=== PATIENT | male | born 1940 | race Caucasian/White ===

== ENCOUNTER 2017-06-23 12:57 | Outpatient (CLI) | payer MEDICARE, OTHER ==
--- NOTE | 2017-06-23 14:21 | XRAY Report ---
FACIAL BONES: 06/23/2017 CLINICAL INDICATION: Lacerations, broken glasses, question foreign body. FINDINGS: AP, Craft, lateral, and Timothy views of the facial bones are obtained. There is no eviden ce of acute fracture. There is an ovoid radiodensity projecting over the left orbit on the Craft vie w, measuring 8 x 4 mm, suspicious for a foreign body. Consider CT for further evaluation if clinicall y warranted. IMPRESSION: POSSIBLE LEFT ORBIT FOREIGN BODY, MEASURING 8 X 4 MM, BEST SEEN ON THE CRAFT VIEW. CONS IDER CT FOR FURTHER EVALUATION. NO DEFINITE EVIDENCE OF ORBITAL FRACTURE ON PLAIN FILM. JOB #: [id number] EXT JOB #:[id number]
--- NOTE | 2017-06-23 17:47 | CT Preliminary Report ---
Exam: CT Facial Bones W/O IMPRESSION: 1. No evidence of facial bone fracture. 2. Extensive left periorbital soft tissue swelling with several punctate superficial soft tissue fore ign bodies superior and lateral to the left orbit. [facility] SITE ID: [id number]
--- NOTE | 2017-06-23 17:50 | CT Report ---
EXAM: CT MAXILLOFACIAL WITHOUT CONTRAST EXAM DATE: 06/23/2017 05:31 PM. CLINICAL HISTORY: LAC OVER ZYGOMA. COMPARISONS: None. TECHNIQUE: Thin-section axial images were acquired of the face without contrast. Post-processing: Cor onal and sagittal reformats. Other: None. In accordance with CT protocol optimization, one or more of the following dose reduction techniques w ere utilized for this exam: automated exposure control, adjustment of mA and/or KV based on patient s ize, or use of iterative reconstructive technique. FINDINGS: Bones: No fracture or bone lesion. Temporomandibular Joints: The temporomandibular joints are symmetric and normally located. Sinuses: Normal. No mucosal thickening or fluid levels. Other: There is extensive left periorbital soft tissue swelling. Several 1-2 mm superficial soft tiss ue densities most likely representing foreign bodies seen superior and lateral to the orbit. IMPRESSION: 1. No evidence of facial bone fracture. 2. Extensive left periorbital soft tissue swelling with several punctate superficial soft tissue fore ign bodies superior and lateral to the left orbit. [facility] Referring Provider Line: [phone] SITE ID: [id number]
== END 2017-06-23 12:58 | disposition home or self-care (01) ==
LOC: DI 12:57
PROVIDERS: ATTEND Specialist
DX: S01.82XA Laceration with foreign body of other part of head, initial encounter (principal); R22.0 Localized swelling, mass and lump, head
CPT/HCPCS: 70150; 70486

== ENCOUNTER 2017-06-23 18:56 | Outpatient (CLI) | payer MEDICARE, OTHER | END 2017-06-23 18:57 | disposition home or self-care (01) | LOC: DI 18:56 | PROVIDERS: ATTEND Specialist | DX: Z53.9 Procedure and treatment not carried out, unspecified reason (principal) ==

== ENCOUNTER 2017-06-25 09:54 | Emergency (ER) | payer MEDICARE, OTHER ==
[2017-06-25] MEDS ORDERED: oxyCOD/ACETAMIN 5 MG/325 MG TABLET PO STA (10:03)
--- NOTE | 2017-06-25 10:09 | ED Physician Documentation ---
PD HPI UPPER EXT INJURY - Stated complaint Stated Complaint: LEFT WRIST PX/GLF - Chief complaint Chief Complaint: Ext Problem - History obtained from History obtained from: Patient, Family - History of Present Illness Location: Left, Wrist Type of injury: Fall Where injury occurred: Street Timing - onset: How many days ago (2) Timing - duration: Days (2) Timing - details: Abrupt onset Pain level max: 8 Pain level now: 8 Improved by: Rest, Ice, Immobilization Worsened by: Moving, Palpating Associated symptoms: Tingling, Swelling. No: Weakness, Numbness, Discolored Contributing factors: No: Anticoagulated, Prior ortho surgery, Prosthetic joint - Additonal information Additional information: patient states fell 2 days ago onto L wrist. Seen in clinic at that time and had reportedly negative head CT. Laceration repaired. Now has L wrist pain. Pt is right handed. Review of Systems Constitutional: denies: Fever, Chills GI: denies: Nausea, Vomiting, Diarrhea Skin: denies: Rash Musculoskeletal: denies: Neck pain, Back pain Neurologic: denies: Focal weakness, Numbness, Confused, Altered mental status, Headache PD PAST MEDICAL HISTORY - Past Medical History Cardiovascular: Atrial fibrillation Respiratory: COPD, Sleep apnea - Past Surgical History Past Surgical History: Yes Ortho: Knee replacement, Spine surgery - Present Medications Home Medications: Ambulatory Orders Medication Instructions Recorded Confirmed Tamsulosin [Flomax] 0.4 mg PO DAILY 10/02/16 06/25/17 Albuterol Sulfate [Proair Hfa 2 puffs INH Q4H PRN 10/03/16 06/25/17 Inhaler] Fluticasone/Salmeterol [Advair 1 cap INH BID 10/03/16 06/25/17 250-50 Diskus] Omeprazole [PriLOSEC] 20 mg PO DAILY #30 capsule 10/03/16 06/25/17 Gabapentin 300 mg PO TID 06/25/17 06/25/17 Hydrocodone/Acetaminophen 1 - 2 each PO Q6H PRN #14 tablet 06/25/17 [Hydrocodon-Acetaminophen 5-325] - Allergies Allergies/Adverse Reactions: Allergies Allergy/AdvReac Type Severity Reaction Status Date / Time latex Allergy Intermediate Hives Verified 10/02/16 17:27 Beef Containing Products Allergy Hives Verified 10/02/16 17:41 gluten Allergy Cramps Verified 10/02/16 17:41 kiwi Allergy Hives Verified 10/02/16 17:41 peach Allergy Hives Verified 10/02/16 17:41 penicillinase Allergy Rash Verified 10/02/16 13:33 shrimp Allergy Hives Verified 10/02/16 17:41 - Social History Does the pt smoke?: No Smoking Status: Never smoker Does the pt drink ETOH?: No PD ED PE NORMAL - Vitals Vital signs reviewed: Yes - General General: Alert and oriented X 3, No acute distress - HEENT HEENT: Moist mucous membranes - Neck Neck: Supple, no meningeal sign - Derm Derm: Warm and dry - Extremities Extremities: Other (TTP over ulnar aspect of the L wrist. No snuffbox tenderness. NVI. Mild swelling. No hand or finger tenderness. ) - Neuro Neuro: Alert and oriented X 3 - Psych Psych: Normal mood, Normal affect Results - Vitals Vitals: Vital Signs - 24 hr 06/25/17 06/25/17 09:58 11:30 Temperature 36.2 C L Heart Rate 78 64 Respiratory 18 18 Rate Blood Pressure 152/119 H 143/74 H O2 Saturation 95 97 Oxygen O2 Source Room air - Rads (name of study) L wrist xray Radiology: Prelim report reviewed, EMP read contemporaneously, See rad report ( No fracture or acute osseous abnormality. Mild widening of the scapholunate space, consistent with ligamentous disruption, age indeterminate. Soft tissue swelling over the distal ulna. ) PD MEDICAL DECISION MAKING - ED course Complexity details: reviewed results, re-evaluated patient, considered differential, d/w patient, d/w family ED course: Patient is a 77-year-old male who presents to the emergency department with left wrist pain after a fall several days ago. The x-ray does not reveal any acute fractures or osseous abnormalities. There is a mild widening of the scapholunate space, possible ligamentous disruption. Age indeterminant. Also some soft tissue swelling over the distal ulna. Will place the patient in a Velcro thumb spica and have him follow-up with orthopedics for repeat evaluation. Neurovascularly intact. Patient and family counseled regarding signs and symptoms for which I believe and urgent re-evaluation would be necessary. Patient with good understanding of and agreement to plan and is comfortable going home at this time This document was made in part using voice recognition software. While efforts are made to proofread this document, sound alike and grammatical errors may occur. Departure - Departure Disposition: 01 Home, Self Care Clinical Impression: Left wrist sprain Qualifiers: Encounter type: initial encounter Qualified Code(s): S63.502A - Unspecified sprain of left wrist, initial encounter Condition: Good Instructions: ED Sprain Wrist Follow-Up: JABIER MARCUS [Primary Care Provider] - [facility] [Provider Group] - Within 1 week Prescriptions: Hydrocodone/Acetaminophen [Hydrocodon-Acetaminophen 5-325] 1 - 2 each PO Q6H PRN #14 tablet PRN Reason: pain Comments: Return if you worsen. Keep the splint on for at least the next week. There is some widening of a joint in your wrist called the scapholunate joint that may be related to this injury and needs orthopedic follow up. Do not drink alcohol or drive while on narcotic pain medicine. Note that many narcotic pain relievers also contain tylenol/acetaminophen. Please ensure that your total dose of acetaminophen from all sources does not exceed 3 grams (3000mg) per day. You may constipated on this medication, take a stool softener such as "Colace" twice a day while you are on it. Also recommend a pzdn-utb-innslor laxative such as senna or MiraLAX any day that you do not have a bowel movement. If you received narcotic pain medication in the emergency department, do not drive or operate machinery for the next 24 hours. Your blood pressure was elevated today on check in to the emergency department. This does not mean that you have hypertension, it is a common phenomenon to check into the emergency department and have elevated blood pressure. I recommend that you see your primary care physician within the week to have it rechecked when you're feeling better. Discharge Date/Time: 06/25/17 12:10
[2017-06-25] MEDS ORDERED: oxyCOD/ACETAMIN 5 MG/325 MG TABLET PO ONE (10:10)
[2017-06-25] MEDS ORDERED: PROMETHAZINE 25 MG TABLET PO STA (11:29)
[2017-06-25 11:31] VITALS: BP 143/74
[2017-06-25] MEDS ORDERED: PROMETHAZINE 25 MG TABLET ONE (11:34)
--- NOTE | 2017-06-25 11:48 | XRAY Preliminary Report ---
Exam: XR Wrist 4 View LT IMPRESSION: No fracture or acute osseous abnormality. Mild widening of the scapholunate space, consistent with ligamentous disruption, age indeterminate. Soft tissue swelling over the distal ulna. [facility] SITE ID: [id number]
--- NOTE | 2017-06-25 11:50 | XRAY Report ---
EXAM: LEFT WRIST RADIOGRAPHY, 4 VIEWS EXAM DATE: 06/25/2017 11:19 AM. CLINICAL HISTORY: Fall with wrist pain in a 77-year-old male. COMPARISON: None. TECHNIQUE: Frontal, lateral, oblique and carpal navicular views. FINDINGS: Bones: Normal. No fractures or bone lesions. Joints: Mild to moderate narrowing of the scapholunate space, age indeterminate. 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 No subluxations o r joint effusion. Benign-appearing bone cyst in the distal ulnar metaphysis. Soft Tissues: Mild soft tissue swelling about the distal ulna, medial aspect. No soft tissue gas or f oreign body. IMPRESSION: No fracture or acute osseous abnormality. Mild widening of the scapholunate space, consistent with ligamentous disruption, age indeterminate. Soft tissue swelling over the distal ulna. [facility] Referring Provider Line: [phone] SITE ID: [id number]
== END 2017-06-25 12:10 | disposition home or self-care (01) ==
LOC: ED 09:54
DX: S63.502A Unspecified sprain of left wrist, initial encounter (principal); W18.30XA Fall on same level, unspecified, initial encounter; Y92.410 Unspecified street and highway as the place of occurrence of the external cause; Z96.659 Presence of unspecified artificial knee joint
CPT/HCPCS: 73110; 99283; A9270; Q0169

== ENCOUNTER 2017-07-12 15:41 | Outpatient (CLI) | payer MEDICARE, OTHER ==
[2017-07-12 16:25] LABS: CREATININE 0.8 mg/dL (0.6-1.2)
--- NOTE | 2017-07-13 08:18 | CT Report ---
EXAM: CT HEAD EXAM DATE: 07/12/2017 05:39 PM. CLINICAL HISTORY: HEAD INJURY; DR MARCUS CHANGED ORDER TO WITHOUT. COMPARISON: None. TECHNIQUE: Multiaxial CT images were obtained from the foramen magnum to the vertex. IV contrast: Non e. Reformats: Coronal. In accordance with CT protocol optimization, one or more of the following dose reduction techniques w ere utilized for this exam: automated exposure control, adjustment of mA and/or KV based on patient s ize, or use of iterative reconstructive technique. FINDINGS: Parenchyma: No intraparenchymal hemorrhage. No evidence of mass, midline shift, or CT findings of acu te infarction. Cooper-white differentiation is distinct. Extraaxial Spaces: Normal for age. No subdural or epidural collections identified. Ventricles: The ventricles and cortical sulci are enlarged, consistent with age-related tissue loss. Sinuses: Imaged paranasal sinuses, orbits, and mastoids show no significant abnormality. Bones: No evidence of fracture or calvarial defect. Other: Diffuse chronic microangiopathic white matter changes are evident. IMPRESSION: Generalized age-related cortical atrophic changes without evidence of acute intracranial abnormality. [facility] Referring Provider Line: [phone] SITE ID: [id number]
== END 2017-07-12 15:42 | disposition home or self-care (01) ==
LOC: LAB 15:41
PROVIDERS: ATTEND Specialist
DX: S09.90XA Unspecified injury of head, initial encounter (principal)
CPT/HCPCS: 36415; 70450; 82565

== ENCOUNTER 2017-11-03 08:20 | Observation (INO) | payer MEDICARE, OTHER ==
[2017-11-03 08:55] LABS: BASOPHILS % (AUTO) 0.5 %; EOSINOPHILS # (AUTO) 0.1 10^3/uL (0.0-0.7); HGB - HEMOGLOBIN 13.7 g/dL (14.0-18.0); LYMPHOCYTES # (AUTO) 2.2 10^3/uL (1.5-3.5); LYMPHOCYTES % (AUTO) 25.8 %; MEAN CORPUSCULAR HEMOGLOBIN 31.5 pg (27.0-31.0); MEAN CORPUSCULAR VOLUME 92.5 fL (80.0-94.0); MEAN PLATELET VOLUME 7.9 fL (7.4-11.4); MONOCYTES # (AUTO) 0.5 10^3/uL (0.0-1.0); MONOCYTES % (AUTO) 5.8 %; NEUTROPHILS # (AUTO) 5.7 10^3/uL (1.5-6.6); NEUTROPHILS % (AUTO) 66.9 %; PLT - PLATELET COUNT 150 10^3/uL (130-450); RED BLOOD COUNT 4.36 10^6/uL (4.70-6.10); RED CELL DISTRIBUTION WIDTH 14.2 % (12.0-15.0); WHITE BLOOD COUNT 8.5 x10^3/uL (4.8-10.8)
[2017-11-03 09:01] LABS: INR 1.1 (0.8-1.2); PT - PROTHROMBIN TIME 12.9 secs (9.9-12.6)
[2017-11-03 09:10] LABS: ALBUMIN 3.8 g/dL (3.2-5.5); ALBUMIN/GLOBULIN RATIO 1.1 (1.0-2.2); BILIRUBIN,TOTAL 1.1 mg/dL (0.2-1.0); CALCIUM 9.1 mg/dL (8.5-10.3); CREATININE 0.9 mg/dL (0.6-1.2); TOTAL PROTEIN 7.3 g/dL (6.7-8.2)
[2017-11-03] MEDS ORDERED: ACETAMINOPHEN 1,000 MG/100 ML 100 ML IV STA (09:16)
--- NOTE | 2017-11-03 09:26 | ED Physician Documentation ---
History of Present Illness - Stated complaint Stated Complaint: ABD PAIN - Chief complaint Chief Complaint: Abd Pain - Additonal information Additional information: hx from pt 77 male hx GIB cared for at [facility] had a scope bloody liquid stool/rectal dc, tenasmus, lower abd pain since last night about 5 PM no bad food travel within [place] only ([place]) no sick contacts hx int a fib, take baby asa daily, no other anticoag no fever Review of Systems Constitutional: denies: Fever Cardiac: denies: Chest pain / pressure Respiratory: denies: Dyspnea GI: reports: Abdominal Pain, Bloody / black stool. denies: Nausea, Vomiting Endocrine: denies: Easy bruising / bleeding Immunocompromised: denies: Immunocompromised PD PAST MEDICAL HISTORY - Past Medical History Past Medical History: Yes Cardiovascular: Atrial fibrillation Respiratory: COPD, Sleep apnea Neuro: Other Other Past Medical History: Trigeminal neuorpathy - Past Surgical History Past Surgical History: Yes Ortho: Knee replacement, Spine surgery - Present Medications Home Medications: Ambulatory Orders Medication Instructions Recorded Confirmed Tamsulosin [Flomax] 0.4 mg PO DAILY 10/02/16 11/03/17 Albuterol Sulfate [Proair Hfa 2 puffs INH Q4H PRN 10/03/16 11/03/17 Inhaler] Gabapentin 300 mg PO TID 06/25/17 11/03/17 Fluticasone/Salmeterol [Advair 1 puffs PO BID 11/03/17 11/03/17 250-50 Diskus] - Allergies Allergies/Adverse Reactions: Allergies Allergy/AdvReac Type Severity Reaction Status Date / Time latex Allergy Intermediate Hives Verified 11/03/17 08:28 Beef Containing Products Allergy Hives Verified 11/03/17 08:28 gluten Allergy Cramps Verified 11/03/17 08:28 kiwi Allergy Hives Verified 11/03/17 08:28 peach Allergy Hives Verified 11/03/17 08:28 penicillinase Allergy Rash Verified 11/03/17 08:28 shrimp Allergy Hives Verified 11/03/17 08:28 - Social History Does the pt smoke?: No Smoking Status: Never smoker Does the pt drink ETOH?: No - Immunizations Immunizations are current?: Yes PD ED PE NORMAL - Vitals Vital signs reviewed: Yes - General General: Alert and oriented X 3 - Cardiac Cardiac: RRR - Respiratory Respiratory: No respiratory distress, Clear bilaterally - Abdomen Abdomen: Soft, Other (mod TTP lower abd s peritoneal signs) - Rectal Rectal: Other (no external hemorrhoid or fissure seen, no mass or internal hemorrhoid palpable on JEF, mucous norma blood on JEF hemeoccult + QC passed) - Neuro Neuro: Alert and oriented X 3 Results - Vitals Vitals: Vital Signs - 24 hr 11/03/17 11/03/17 08:24 11:58 Temperature 36.7 C Heart Rate 82 80 Respiratory 18 15 Rate Blood Pressure 121/71 133/97 H O2 Saturation 95 97 Oxygen O2 Source Room air - Labs Labs: Laboratory Tests 11/03/17 11/03/17 11/03/17 08:48 08:48 08:48 WBC 8.5 RBC 4.36 L Hgb 13.7 L Hct 40.3 L MCV 92.5 MCH 31.5 H MCHC 34.0 RDW 14.2 Plt Count 150 MPV 7.9 Neut # 5.7 Lymph # 2.2 [place] # 0.5 Eos # 0.1 Baso # 0.0 Absolute Nucleated RBC 0.00 Nucleated RBC % 0.0 PT 12.9 H INR 1.1 Sodium 138 Potassium 4.4 Chloride 101 Carbon Dioxide 27 Anion Gap 10.0 BUN 27 H Creatinine 0.9 Estimated GFR (MDRD) 82 L Glucose 118 H Calcium 9.1 Total Bilirubin 1.1 H AST 22 ALT 19 Alkaline Phosphatase 71 Total Protein 7.3 Albumin 3.8 Globulin 3.5 Albumin/Globulin Ratio 1.1 Lipase 20 L - Rads (name of study) CT AP IV Radiology: See rad report PD MEDICAL DECISION MAKING - ED course ED course: reviewed EMR - pt was admitted for GIB Sep 2016 but just had serial H/H no scopes done that are documented in EMR it is Monday of a holiday weekend so close follow up PMD not possible will place in obs for serial H/H consideration of scopes pt advised of CT findings paged hospitalist at 1110 AM spoke to hospitalist at noon Departure - Departure Disposition: ED Place in Observation Clinical Impression: GI bleed
[2017-11-03] MEDS ORDERED: IOPAMIDOL-300 100 ML VIAL ONE (10:08)
[2017-11-03] MEDS ORDERED: IOPAMIDOL-300 100 ML VIAL IVP ONE (10:21)
--- NOTE | 2017-11-03 10:48 | CT Report ---
EXAM: CT ABDOMEN AND PELVIS EXAM DATE: 11/03/2017 10:15 AM. CLINICAL HISTORY: Lower abdominal pain and gastrointestinal bleeding. COMPARISONS: None. TECHNIQUE: Routine helical CT imaging was performed through the abdomen and pelvis. IV contrast: 100M L ISOVUE 300. Enteric contrast: No. Reconstructions: Coronal and sagittal. In accordance with CT protocol optimization, one or more of the following dose reduction techniques w ere utilized for this exam: automated exposure control, adjustment of mA and/or KV based on patient s ize, or use of iterative reconstructive technique. FINDINGS: Lung Bases: Unremarkable. Liver: Normal. No masses. Gallbladder/Bile Ducts: Numerous subcentimeter stones within the gallbladder. No gallbladder wall thi ckening or pericholecystic fluid. No bile duct dilation. Spleen: Normal. Pancreas: Normal. Adrenal Glands: Normal. Kidneys: There is an approximately 2.2 x 1.9 cm exophytic cyst arising from the upper pole of the rig ht kidney. There is a 6 mm hypodense focus at the lower pole of the right kidney which is too small t o characterize accurately. There is a 5 mm hypodense focus at the anterior aspect of the mid left kid nnamdi which is too small to characterize. There is a 1.1 cm hypodense cyst at the lower pole of the lef t kidney and a 1.5 cm cyst at the lower pole of the left kidney. No hydronephrosis. Peritoneal Cavity/Bowel: There is moderate to severe descending and sigmoid colon diverticulosis. No free fluid or lymphadenopathy. Pelvic Organs: There are a few small diverticula arising from the urinary bladder. The prostate gland is enlarged and measures approximately 6.4 x 3.9 x 4.5 cm. No lymphadenopathy or free fluid. Vasculature: No aneurysms or other significant abnormality. Bones: Degenerative changes of the lumbar spine. Small subcentimeter sclerotic lesions at the left ac etabulum and left ischial bone which probably represent bone islands. Other: None. IMPRESSION: 1. Cholelithiasis. No bile duct dilation. 2. Bilateral renal cysts. No hydronephrosis. Small 6 mm hypodense focus at the pole of the right kidn ey which is too small to characterize. A 5 mm hypodense focus at the mid left kidney which is too sma ll to characterize. 3. Moderate to severe descending and sigmoid colon diverticulosis. No definite evidence of diverticul itis. 3. No intra-abdominal free fluid or lymphadenopathy. No bowel dilation. 4. Enlarged prostate gland. [facility] Referring Provider Line: [phone] SITE ID: [id number]
[2017-11-03] MEDS ORDERED: ONDANSETRON ODT 4 MG TABLET TL PRN (12:40)
[2017-11-03] MEDS ORDERED: SODIUM CHLORIDE FLUSH 0.9% 10 ML SYRINGE IVP PRN (12:40)
--- NOTE | 2017-11-03 13:11 | HISTORY & PHYSICAL EXAMINATION ---
Chief Complaint - Chief Complaint Chief Complaint: BRBPR GI Bleed Admit Template - Admitted From Admitted from: ED - History Obtained From Records Reviewed: RN notes reviewed, Old records reviewed History obtained from: Patient Exam limitations: No limitations - History of Present Illness Severity at the worst: reports: Moderate Bleeding quality: reports: Black, tarry stool, Bry blood stool Context-bleeding started w/: reports: Bowel movement, Spontaneous Timing: reports: Abrupt onset Duration: reports: Unknown (started around 12 midnight.) Improved with: reports: Nothing Worsened by: reports: Movement, Other (diarrhea) Associated symptoms: reports: Feeling faint / dizzy, General Weakness HPI Comment/Other: Carlyle Dao is a morbidly obese white male, age 77-years with a past medical history of paroxysmal atrial fibrillation, right trigeminal neurelgia, COPD, LEANNA , bilateral knee surgeries and previous GI bleed. Patient states he just got home from a trip in his RV in which he traveled over 500 miles with his . He can recall that the last time he did this, he remembers having similar "rectal bleeding" and relates it to sitting for extended periods. Since midnight, he has had several episodes of rectal bleeding and it is noted as bright red and maroon. He has associated LLQ, RLQ discomfort and tenderness upon palpation. He will be admitted for observation, for GI procedure per Dr. Haas, General surgery. PMH/PSH - Past Medical History Cardiovascular: positive: Peripheral Vascular Disease, Atrial fibrillation Respiratory: positive: COPD, Sleep apnea Neuro: positive: Other. negative: Alzhiemer's, Dementia GI: positive: Chronic constipation : positive: Benign prostate hypertrophy, Nocturia, Frequency Psych: positive: None. negative: ADD/ADHD, Post traumatic stress disorder Musculoskeletal: positive: None Derm: positive: None MRSA Hx?: No Other Past Medical History: Trigeminal neuorpathy - Past Surgical History Ortho: positive: Knee replacement, Spine surgery HEENT: positive: Cataracts (mild) Social & Family Hx - Social History Does the pt smoke?: No Smoking Status: Never smoker Does the pt drink ETOH?: No Does the pt have substance abuse?: No - POLST Patient has POLST: No POLST Status: Full Code - Family History Family History: Mother: , CAD, Father: , CAD, Sister: Alive and Well (3 sisters without health issues.) Meds/Allgy - Home Medications Home Medications: Ambulatory Orders Medication Instructions Recorded Confirmed Tamsulosin [Flomax] 0.4 mg PO DAILY 10/02/16 11/03/17 Albuterol Sulfate [Proair Hfa 2 puffs INH Q4H PRN 10/03/16 11/03/17 Inhaler] Gabapentin 300 mg PO TID 06/25/17 11/03/17 Fluticasone/Salmeterol [Advair 1 puffs PO BID 11/03/17 11/03/17 250-50 Diskus] - Allergies Allergies/Adverse Reactions: Allergies Allergy/AdvReac Type Severity Reaction Status Date / Time latex Allergy Intermediate Hives Verified 11/03/17 08:28 Beef Containing Products Allergy Hives Verified 11/03/17 08:28 gluten Allergy Cramps Verified 11/03/17 08:28 kiwi Allergy Hives Verified 11/03/17 08:28 peach Allergy Hives Verified 11/03/17 08:28 penicillinase Allergy Rash Verified 11/03/17 08:28 shrimp Allergy Hives Verified 11/03/17 08:28 Review of Systems - Eyes Eyes: reports: Corrective lenses - Cardiovascular Cariovascular: reports: Irregular heart rate, Edema, Orthopnea - Gastrointestinal Gastrointestinal: reports: Constipation, Bloody stools - Genitourinary Genitourinary: reports: Frequency, Urgency, Nocturia - All Other Systems All Other Systems: reports: Reviewed and negative Exam - Vital Signs Reviewed Vital Signs: Yes - Physical Exam General Appearance: positive: No acute distress, Alert Eyes Bilateral: positive: Normal inspection, PERRL ENT: positive: ENT inspection nml, Pharynx nml, No signs of dehydration Neck: positive: Nml inspection, Thyroid nml, No JVD, Trachea midline, Other ( large neck circumference.) Respiratory: positive: Chest non-tender, No respiratory distress, Breath sounds nml Cardiovascular: positive: No gallop, Irregularly irregular, Decreased pulse(s) Peripheral Pulses: positive: 1+ Abdomen: positive: Non-tender, Hepatomegaly, Other (obese, tenderness RLQ, LLQ) Rectal: positive: Other (deferred as general surgery will be doing a full inspection.) Back: positive: Nml inspection Skin: positive: Color nml, No rash, Warm, Dry Extremities: positive: Non-tender, Full ROM, Pedal edema, Joint swelling, Other (discoloration BLE, chronic edema.) Neurologic/Psychiatric: positive: Oriented x3, CN's nml (2-12), Motor nml, Sensation nml Reflexes: Bicep (R): 4+, Bicep (L): 4+ Results - Lab Results Lab results reviewed: Yes Fish Bones: 11/03/17 18:13 11/03/17 08:48 - Diagnostic Imaging Results Diagnostic Imaging Results: positive: Prelim report reviewed - EKG Results EKG Interpreted Independently: Yes EKG Findings: WPW verses VTAC. Wide,regular complexes at a rate of 100. Per telemetry. ARRA - Anticipated LOS Anticipated Stay Length: Less than 2 midnights - AMI - Statin at Admit Aspirin Prescribed on Admit: No Not Ordered - Medical Reason: Contraindicated - Stroke - Rehab Assessment Rehab services assessment to be ordered?: No Not Ordered - Medical Reason: Contraindicated - DVT/VTE - Prophylaxis VTE/DVT Device ordered at admit?: Yes VTE/DVT Prophylaxis med ordered at admit?: No Not Ordered - Medical Reason: Contraindicated Impression/Plan - Problem List Problem List: Gastrointestinal hemorrhage, unspecified (K92.2) Since midnight, he has had several episodes of rectal bleeding and it is noted as bright red and maroon. He has associated LLQ, RLQ discomfort and tenderness upon palpation. Plan: He will be admitted for observation, for GI procedure per Dr. Haas, General surgery. Unspecified atrial fibrillation (I48.91) Patient has a history of this and is not on anticoagulation or medications for rate control. Plan: Monitor on telemetry over night. Echocardiogram for AM to clear for GI procedure. Unspecified asthma, uncomplicated (J45.909) Patient has a history of this and notes it to be in good control. Plan: Continue inhalers as at home. Enlarged prostate without lower urinary tract symptoms (N40.0) Patient complains of urgency, and frequency at times. Plan: urinal at bedside. Code status: FULL DVT prophylaxis: SCDs as anticoagulation is contraindicated.
[2017-11-03] MEDS: SODIUM CHLORIDE FLUSH 0.9% 10 ML SYRINGE IVP SCH ×2 (14:37→21:37)
[2017-11-03] MEDS: GABAPENTIN 300 MG CAPSULE PO SCH ×2 (16:25→21:36)
[2017-11-03 18:26] LABS: HGB - HEMOGLOBIN 12.9 g/dL (14.0-18.0)
[2017-11-04 06:18] LABS: BASOPHILS # (AUTO) 0.1 10^3/uL (0.0-0.1); BASOPHILS % (AUTO) 0.7 %; EOSINOPHILS # (AUTO) 0.2 10^3/uL (0.0-0.7); EOSINOPHILS % (AUTO) 2.6 %; HGB - HEMOGLOBIN 12.4 g/dL (14.0-18.0); LYMPHOCYTES # (AUTO) 2.3 10^3/uL (1.5-3.5); LYMPHOCYTES % (AUTO) 30.1 %; MEAN CORPUSCULAR HEMOGLOBIN 31.3 pg (27.0-31.0); MEAN CORPUSCULAR HGB CONC 33.3 g/dL (32.0-36.0); MEAN PLATELET VOLUME 8.1 fL (7.4-11.4); MONOCYTES # (AUTO) 0.5 10^3/uL (0.0-1.0); MONOCYTES % (AUTO) 6.6 %; NEUTROPHILS # (AUTO) 4.6 10^3/uL (1.5-6.6); PLT - PLATELET COUNT 133 10^3/uL (130-450); RED BLOOD COUNT 3.97 10^6/uL (4.70-6.10); RED CELL DISTRIBUTION WIDTH 14.3 % (12.0-15.0); WHITE BLOOD COUNT 7.7 x10^3/uL (4.8-10.8)
[2017-11-04 06:22] LABS: CALCIUM 8.4 mg/dL (8.5-10.3); CREATININE 0.8 mg/dL (0.6-1.2)
[2017-11-04] MEDS: GABAPENTIN 300 MG CAPSULE PO SCH ×2 (06:55→14:20)
[2017-11-04] MEDS: SODIUM CHLORIDE FLUSH 0.9% 10 ML SYRINGE IVP SCH ×2 (06:55→14:20)
[2017-11-04] MEDS ORDERED: PANTOPRAZOLE 40 MG TABLET PO SCH (07:00)
--- NOTE | 2017-11-04 08:43 | ADVANCE CARE PLANNING NOTE ---
Advance Care Planning - Date/Time Date: 11/03/17 Time: 17:00 - Purpose of encounter Text: To discuss end of life wishes and code status. - Parties in attendance Parties in attendance: Myself and patient, Tyshawn Dao. - Decisional capacity Decisional capacity of: Carlyle understands all of his medical problems, is A & O x4, and has not shown any signs of confusion. He does not believe his needs to be present for this discussion. - Subjective/Patient's story Subjective/Patient's story: Answers to the following 4 questions: 1) If you should stop breathing, is it ok to intubate you to support your respiratory system? YES. 2) If your heart stops beating, can we do chest compressions? YES 3) If you need cardiac type medications, can we give you those either through an IV or IO? YES. 4) If you go into a shockable heart rhythm, can we shock you out of it using our zoll machine? YES. Patient only hesitated when thinking about being on respiratory support and states that he does not want this to go on for more than about 2 weeks, and does not want to be in a vegetative state for his remaining time on earth. He notes that he has been very pleased with the quality of his life and has no regrets. He continues to enjoy traveling in his RV with his . He has several grand children and wants to be of clear mind to enjoy them. - Objective/Medical story Objective/Medical Story: Due to patient answering YES to all questions surrounding end-of-life measures, I have designated his code status as FULL. He has a clear understanding based on my medical decision making abilities. - Goals of Care Goals of care determinations: Goals of care are based on maintaining a good quality of life. The patient states that as long as he can think clearly, can continue to ambulate and can enjoy his food, his life is worth living. - Plan Plan: Continue to treat medically, avoiding technically invasive procedures/ surgeries. A colonoscopy is not inappropriate and we will proceed as per General surgery, Dr. Haas. Continue code status as FULL or Attempt Resuscitation. - Code Status Code Status: Attempt Resuscitation - Time Spent on Advance Care Planning Time spent on advance care plannin
[2017-11-04] MEDS ORDERED: POLYETHYLENE GLYCOL 3350 17 GM PACKET PO SCH (09:00)
[2017-11-04] MEDS ORDERED: TAMSULOSIN 0.4 MG CAPSULE PO SCH (09:00)
[2017-11-04] MEDS ORDERED: SODIUM/POTASSIUM/MAG SULFATES 354 ML PREP KIT PO SCH (12:00)
--- NOTE | 2017-11-04 12:14 | Discharge Plan ---
Discharge Plan Disposition: Against Medical Advice Condition: Fair Diet: Regular Activity Restrictions: No Restrictions Shower Restrictions: No Driving Restrictions: No Weight Bearing: Full Weight Additional Instructions or Follow Up instructions: Follow up with PCP on Monday. Choose a soil conservation teacher. Bimal Moody MD or Sonia Meza MD both come to our [facility] clinic. Schedule a colonoscopy. The abdominal CT that was performed in the ED showed moderate to severe descending and sigmoid colon diverticulosis, no evidence of diverticulitis. Take all of your medications as prescribed. Follow-Up Care: [facility] - Cardiac No Smoking: If you smoke, Please STOP! Call for help. Follow-up with: Juan Vasquez MD [Primary Care Provider] -
--- NOTE | 2017-11-04 12:22 | DISCHARGE SUMMARY ---
Discharge Summary Admit Date: 11/03/17 Discharge Date: 11/04/17 Discharging Provider: RUBEN Arellano Primary Care Provider: Juan Vasquez Code Status: Attempt Resuscitation Condition at Discharge: Fair Discharge Disposition: 07 Against Medical Advice - DIAGNOSES Admission Diagnoses: Gastrointestinal hemorrhage, unspecified (K92.2) Unspecified atrial fibrillation (I48.91) Unspecified asthma, uncomplicated (J45.909) Enlarged prostate without lower urinary tract symptoms (N40.0) Discharge Diagnoses with Status of Each Condition: GI bleed (K92.2) unresolved, stable. GI procedures on hold. Continue care at [facility] [place]. Atrial fibrillation (I48.91) chronic, WPW noted overnight-wide complex tachycardia. BPH (benign prostatic hyperplasia) (N40.0) chronic, stable. Asthma (J45.909) stable, controlled. Elevated troponin (R74.8) Troponin was elevated at 0.45, 0.28, and 0.20. Patient has denied chest pain, tightness or other symptoms. Acute electrocardiogram changes (R94.31) Patient is noted to be in atrial fibrillation and has had more consistant junctional beats with a depressed ST wave. - HPI History of Present Illness: Carlyle Dao is a morbidly obese white male, age 77-years with a past medical history of paroxysmal atrial fibrillation, right trigeminal neurelgia, COPD, LEANNA , bilateral knee surgeries and previous GI bleed. Patient states he just got home from a trip in his RV in which he traveled over 500 miles with his . He can recall that the last time he did this, he remembers having similar "rectal bleeding" and relates it to sitting for extended periods. Since midnight, he has had several episodes of rectal bleeding and it is noted as bright red and maroon. He has associated LLQ, RLQ discomfort and tenderness upon palpation. He will be admitted for observation, for GI procedure per Dr. Haas, General surgery. - CONSULTS | PROCEDURES Consultations: General surgery, Dr. Haas. Procedures: Planned for GI procedure, Colonoscopy to evaluate rectal bleeding. Diverticulosis was noted on abdominal CT. - HOSPITAL COURSE Hospital Course: Patient had minimal rectal bleeding once he arrived at the nursing floor. Stool was sent for culture an C-diff testing and was negative. Patient is noted to have chronic constipation, and no hemorrhoids noted on exam. His hemoglobin has been trending downward from 13.7, 12.9, and 12.4. Patient denies lightheadedness, dizziness, shortness of breath, chest pain, chest pressure or other pain. He was placed on telemetry which showed atrial fibrillation, episodes of wide complex tachycardia-similar to V tac, or Nmlyr-Pgillddhu-Dswqt Syndrome. 3 troponins beginning last evening at 6pm, were 0.45, 0.28, 0.20 respectively. Plans were underway to transfer to [facility] for EP/cardiac cath and further work up of rectal bleeding through their Hospitalist service. Just prior to transfer , patient refused. AMA paperwork signed. Consequences explained such as sudden cardiac , myocardial infarction and worsening overall condition related to ongoing rectal bleeding. Patient has not had chest pain, chest pressure or a change in vital signs throughout his stay. He was given the names of 2 cardiologists that come to our [facility] clinic as requested. He was picked up via private car. - ALLERGIES Allergies/Adverse Reactions: Allergies Allergy/AdvReac Type Severity Reaction Status Date / Time latex Allergy Intermediate Hives Verified 11/03/17 08:28 Beef Containing Products Allergy Hives Verified 11/03/17 08:28 gluten Allergy Cramps Verified 11/03/17 08:28 kiwi Allergy Hives Verified 11/03/17 08:28 peach Allergy Hives Verified 11/03/17 08:28 penicillinase Allergy Rash Verified 11/03/17 08:28 shrimp Allergy Hives Verified 11/03/17 08:28 - MEDICATIONS Home Medications: Ambulatory Orders Medication Instructions Recorded Confirmed Tamsulosin [Flomax] 0.4 mg PO DAILY 10/02/16 11/03/17 Albuterol Sulfate [Proair Hfa 2 puffs INH Q4H PRN 10/03/16 11/03/17 Inhaler] Gabapentin 300 mg PO TID 06/25/17 11/03/17 Fluticasone/Salmeterol [Advair 1 puffs PO BID 11/03/17 11/03/17 250-50 Diskus] - PHYSICAL EXAM AT DISCHARGE General Appearance: positive: No acute distress, Alert Eyes Bilateral: positive: Normal inspection, PERRL ENT: positive: ENT inspection nml, Pharynx nml, Dry mucous membranes Neck: positive: Nml inspection, Thyroid nml, No JVD, Trachea midline, Other ( large neck circumferance.) Respiratory: positive: Chest non-tender, No respiratory distress, Other ( diminished.) Cardiovascular: positive: No gallop, Irregularly irregular, Systolic murmur, Decreased pulse(s) Peripheral Pulses: positive: 1+ Abdomen: positive: Tenderness, Guarding, Hepatomegaly, Abnml bowel sounds Rectal: positive: Stool - heme POS, Control positive, Bloody stool, Tenderness Back: positive: Nml inspection Skin: positive: No rash, Warm, Dry, Pallor Extremities: positive: Non-tender, Pedal edema (chronic), Joint swelling, Other (hyperpigmentation of bilateral lower extremities.) Neurologic/Psychiatric: positive: Oriented x3, CN's nml (2-12), Motor nml, Sensation nml, Mood/affect nml Reflexes: Bicep (R): 3+, Bicep (L): 3+ - LABS Result Diagrams: 11/04/17 05:45 11/04/17 05:45 - DIAGNOSTIC IMAGING Diagnostic Imaging Results: Final report reviewed Diagnostic Imaging Results Comments: CT abdomen/pelvis: 11/03/17 FINDINGS: Lung Bases: Unremarkable. Liver: Normal. No masses. Gallbladder/Bile Ducts: Numerous subcentimeter stones within the gallbladder. No gallbladder wall thickening or pericholecystic fluid. No bile duct dilation. Spleen: Normal. Pancreas: Normal. Adrenal Glands: Normal. Kidneys: There is an approximately 2.2 x 1.9 cm exophytic cyst arising from the upper pole of the right kidney. There is a 6 mm hypodense focus at the lower pole of the right kidney which is too small to characterize accurately. There is a 5 mm hypodense focus at the anterior aspect of the mid left kidney which is too small to characterize. There is a 1.1 cm hypodense cyst at the lower pole of the left kidney and a 1.5 cm cyst at the lower pole of the left kidney. No hydronephrosis. Peritoneal Cavity/Bowel: There is moderate to severe descending and sigmoid colon diverticulosis. No free fluid or lymphadenopathy. Pelvic Organs: There are a few small diverticula arising from the urinary bladder. The prostate gland is enlarged and measures approximately 6.4 x 3.9 x 4.5 cm. No lymphadenopathy or free fluid. Vasculature: No aneurysms or other significant abnormality. Bones: Degenerative changes of the lumbar spine. Small subcentimeter sclerotic lesions at the left acetabulum and left ischial bone which probably represent bone islands. Other: None. IMPRESSION: 1. Cholelithiasis. No bile duct dilation. 2. Bilateral renal cysts. No hydronephrosis. Small 6 mm hypodense focus at the pole of the right kidney which is too small to characterize. A 5 mm hypodense focus at the mid left kidney which is too small to characterize. 3. Moderate to severe descending and sigmoid colon diverticulosis. No definite evidence of diverticulitis. 3. No intra-abdominal free fluid or lymphadenopathy. No bowel dilation. 4. Enlarged prostate gland. Venous duplex ultrasound to rule out DVTs: 11/04/17 FINDINGS: Right: Common Femoral Vein (CFV): Normal. CFV-GSV Junction: Normal. Profunda Femoral Vein (PFV): Normal. Femoral Vein (FV) Prox: Normal. Femoral Vein (FV) Mid: Normal. Femoral Vein (FV) Dist: Normal. Popliteal Vein: Normal. Posterior Tibial Veins: Normal. Peroneal Veins: Normal. Left: Common Femoral Vein (CFV): Normal. CFV-GSV Junction: Normal. Profunda Femoral Vein (PFV): Normal. Femoral Vein (FV) Prox: Normal. Femoral Vein (FV) Mid: Normal. Femoral Vein (FV) Dist: Normal. Popliteal Vein: Normal. Posterior Tibial Veins: Normal. Peroneal Veins: Normal. Other: None. IMPRESSION: No evidence for deep venous thrombosis bilaterally. - FOLLOW UP Follow Up: Patient signed AMA paperwork against being transferred to [facility] for cardiology for rule in [place], elevated troponins Follow up with PCP on Monday. Choose a network planner. Bimal Moody MD or Sonia Meza MD both come to our [facility] clinic. Schedule a colonoscopy. The abdominal CT that was performed in the ED showed moderate to severe descending and sigmoid colon diverticulosis, no evidence of diverticulitis. Take all of your medications as prescribed. - TIME SPENT Time Spent in Discharge (Minutes): 60
--- NOTE | 2017-11-04 16:36 | Ultrasound Report ---
EXAM: BILATERAL LOWER EXTREMITY VENOUS ULTRASOUND EXAM DATE: 11/04/2017 03:24 PM. CLINICAL HISTORY: Bilateral lower extremity edema COMPARISON: None. TECHNIQUE: Real-time sonographic vascular imaging was performed by the investigator cash shortage through the lower extremities utilizing both color-flow and Doppler spectral analysis. Multiple merchandiser retail representative static i mages were saved for review. FINDINGS: Right: Common Femoral Vein (CFV): Normal. CFV-GSV Junction: Normal. Profunda Femoral Vein (PFV): Normal. Femoral Vein (FV) Prox: Normal. Femoral Vein (FV) Mid: Normal. Femoral Vein (FV) Dist: Normal. Popliteal Vein: Normal. Posterior Tibial Veins: Normal. Peroneal Veins: Normal. Left: Common Femoral Vein (CFV): Normal. CFV-GSV Junction: Normal. Profunda Femoral Vein (PFV): Normal. Femoral Vein (FV) Prox: Normal. Femoral Vein (FV) Mid: Normal. Femoral Vein (FV) Dist: Normal. Popliteal Vein: Normal. Posterior Tibial Veins: Normal. Peroneal Veins: Normal. Other: None. IMPRESSION: No evidence for deep venous thrombosis bilaterally. [facility] Referring Provider Line: [phone] SITE ID: [id number]
[2017-11-04 18:01] VITALS: BP 110/54
== END 2017-11-04 18:35 | disposition left against medical advice (07) ==
LOC: ED 08:20 → OBS 12:40
PROVIDERS: ADMIT Nurse Practitioner; ATTEND Nurse Practitioner
DX: K57.31 Diverticulosis of large intestine without perforation or abscess with bleeding (principal); R00.0 Tachycardia, unspecified; R74.8 Abnormal levels of other serum enzymes; R94.31 Abnormal electrocardiogram [ECG] [EKG]; I48.2 Chronic atrial fibrillation; J44.9 Chronic obstructive pulmonary disease, unspecified; G50.0 Trigeminal neuralgia; Z79.82 Long term (current) use of aspirin; E66.01 Morbid (severe) obesity due to excess calories; Z68.41 Body mass index [BMI] 40.0-44.9, adult; G47.33 Obstructive sleep apnea (adult) (pediatric); K59.09 Other constipation; Z91.19 Patient's noncompliance with other medical treatment and regimen; N40.1 Benign prostatic hyperplasia with lower urinary tract symptoms; R35.0 Frequency of micturition; R35.1 Nocturia; R39.15 Urgency of urination
CPT/HCPCS: 36415; 74177; 80048; 80053; 83690; 84443; 84484; 85014; 85018; 85025; 85610; 86850; 86900; 86901; 87045; 87046; 87493; 93005; 93306; 93971; 96365; 99284; A9270; G0378; J0131; Q9967; 99283